=== PATIENT | female | born 1945 | race Caucasian/White ===

== ENCOUNTER 2016-07-23 01:19 | Observation (INO) | payer MEDICARE, MEDICAID ==
[~2016-07-23 01:19] MED LIST: ABACAVIR300 M1; ACIDOPHILUS1 EAC7 PO; ALBUTEROL2.5 MG/3 M IH; ALBUTEROL2.5 MG/3 M INH; AMIODARONE HCL200 M1 PO; AMLODIPINE BESYL5 MG PO; ASPIRIN EC81 MG PO; ASPIRIN81 M1 PO; ATIVAN0.5 M1 PO; AUGMENTIN 875-1 EAC2 PO; BROVANA15 MCG/22 AERO NEB; BYSTOLIC5 M1 PO; CARDIZEM CD240 M1 PO; CEFDINIR300 M1 PO; CLARITIN10 M6 PO; COLACE100 M1 PO; COUMADIN2 M1 PO; COUMADIN5 M2 PO; COUMADIN6 M1 PO; CRESTOR10 MG/TAB PO; DICYCLOMINE HCL10 M1 PO; DILTIAZEM 24HR120 M3 PO; DILTIAZEM 24HR240 M2 PO; DOCUSATE SODIU100 M2 PO; FLONASE ALLERG9.9 ML; FLUTICASONE PRO16 G1; GLIMEPIRIDE4 M1 PO; GLUCOPHAGE1000 M1 PO; HYDROCHLOROTH12.5 M3 PO; HYDROCODON-ACE1 EA16 PO; IBUPROFEN400 M1 PO; IPRAT-ALBUT 0.5-3 ML IH; IPRATROPIU0.2 MG/1 M IH; IPRATROPIU0.2 MG/1 M INH; LEVAQUIN750 M1 PO; LEVOCETIRIZINE D5 M1 PO; LEXAPRO5 M1 PO; LISINOPRIL20 M1 PO; LORATADINE10 M3 PO; METFORMIN HCL1000 M2 PO; MONTELUKAST SOD10 M2 PO; MUCINEX600 M1 PO; NORCO 5-325 TA1 EACH PO; NOVOLIN 70100 UNITS/ SC; NOVOLOG FL100 UNIT/2 SC; NOVOLOG FL100 UNIT/2 SQ; NOVOLOG MI100 UNIT/1 SQ; ONDANSETRON ODT4 M1 PO; PAIN RELIEF325 M1 PO; PANTOPRAZOLE SO40 M3 PO; PREDNISONE10 M1 PO; PREDNISONE20 M1 PO; PREMARIN0.625 MG/T VG; PRILOSEC OTC20 M1 PO; PROAIR HFA8.5 GM INH; PROTONIX40 M2 PO; PULMICORT0.5 MG/22 AERO NEB; SINGULAIR10 M1 PO; SPIRIVA18 MC1 IH; SYMBICORT 160-1 PUFF INH; SYNTHROID75 MC1 PO; TIROSINT75 MC1 PO; UREA; ZOFRAN ODT4 MG PO; ZOFRAN4 M2 PO
[2016-07-23 02:04] LABS: BASO % 0.6 % (0-2); EOSINOPHIL ABSOLUTE COUNT 0.5 tho/cmm (0.0-0.7); HCT-HEMATOCRIT 33.6 % (34.0-49.0); HGB-HEMOGLOBIN 10.3 gm/dl (12.0-15.5); IMMATURE GRANULOCYTES ABSOLUTE 0.02 tho/cmm (0-0.03); IMMATURE GRANULOCYTES PERCENT 0.3 % (0-0.3); LYMPH % 22.7 % (20-45); LYMPH ABSOLUTE COUNT 1.5 tho/cmm (0.8-4.5); MCH (MEAN CORPUSCULAR HGB) 27.1 pg (28.0-32.0); MCHC MEAN CORPUSCULAR HGB CONC 30.7 % (32.0-36.0); MCV (MEAN CELL VOLUME) 88.4 fl (82.0-96.0); MEAN PLATELET VOLUME 10.1 cmc (9.4-12.4); MONO % 7.1 % (0-12); MONOCYTE ABSOLUTE COUNT 0.5 tho/cmm (0.0-1.2); NEUTROPHILS % 62.3 % (40-80); PLATELET COUNT 263 tho/cmm (150-450); RED CELL DISTRIBUTION WIDTH 16.5 % (12.4-16.4); WHITE BLOOD COUNT 6.4 tho/cmm (4.0-10.0)
[2016-07-23 02:17] LABS: ANION GAP 13 mmol/L (0-20); BLOOD UREA NITROGEN 21 mg/dl (6-24); CALCIUM 8.6 mg/dl (8.5-10.5); CARBON DIOXIDE-VENOUS 23 mmol/L (22-32); CHLORIDE 109 mmol/l (96-110); CREATININE 0.79 mg/dl (0.50-1.10); GLUCOSE 177 mg/dL (70-110); SODIUM 141 mmol/L (135-145); eGFR VALUE FOR BLACK 86 mL/Min
[2016-07-23 02:24] LABS: POTASSIUM 4.2 mmol/L (3.7-5.1)
[2016-07-23 04:14] LABS: INR 1.5 INR (0.9-1.1); PROTHROMBIN TIME 17.5 SECONDS (9.0-13.6)
== END 2016-07-24 11:58 | disposition other institution (70) ==
LOC: EDMED 01:19 → EMR2 05:48 → PCUB 11:43
PROVIDERS: Emergency Medicine; Nurse Practitioner Family; ADMIT Internal Medicine Interventional Cardiology
DX: R07.9 Chest pain, unspecified (principal); R06.00 Dyspnea, unspecified; J44.9 Chronic obstructive pulmonary disease, unspecified; I25.10 Atherosclerotic heart disease of native coronary artery without angina pectoris; I48.2 Chronic atrial fibrillation; I35.0 Nonrheumatic aortic (valve) stenosis; E78.5 Hyperlipidemia, unspecified; E11.9 Type 2 diabetes mellitus without complications; J45.909 Unspecified asthma, uncomplicated; I11.0 Hypertensive heart disease with heart failure; I50.9 Heart failure, unspecified; M10.9 Gout, unspecified; M19.90 Unspecified osteoarthritis, unspecified site; I34.0 Nonrheumatic mitral (valve) insufficiency; Z79.01 Long term (current) use of anticoagulants; Z79.82 Long term (current) use of aspirin; Z79.84 Long term (current) use of oral hypoglycemic drugs; Z79.899 Other long term (current) drug therapy; Z87.11 Personal history of peptic ulcer disease; Z90.710 Acquired absence of both cervix and uterus; Z98.890 Other specified postprocedural states
CPT/HCPCS: G0378; J1815; J1940; J2930